=== PATIENT | female | born 1995 | race Caucasian/White ===

== ENCOUNTER 2018-05-25 15:28 | Emergency (ER) | payer OTHER ==
--- NOTE | 2018-05-25 16:01 | EDPHY ---
H & P Time Seen by Provider: 05/25/18 15:49 HPI/ROS: CHIEF COMPLAINT: Right middle finger injury HISTORY OF PRESENT ILLNESS: 22-year-old female presents to the emergency department with injury to the right middle finger. The patient was at the [employer] yesterday afternoon and fell back injuring her right middle finger. She did not hit her head or lose consciousness. She denies neck or back pain, chest pain, difficulty breathing, abdominal pain. She denies any other injuries other than the isolated pain she has in her right middle finger. The patient states that this morning when she woke up she was unable to take her ring off because her finger was so swollen and black and blue. She is right -hand dominant. ROS: Denies numbness or tingling in her fingers, pain in her right wrist or elbow. Past Medical/Surgical History: Negative Social History: [employer] student Smoking Status: Former smoker Physical Exam: On examination, the patient had swelling and ecchymosis noted diffusely to the right 3rd finger. Skin is intact. No puncture wound or abrasions. Normal sensation to light touch with normal 2 point discrimination. Limited range of motion especially at the PIP and D IP joint secondary to swelling. She does have a ring on and unable to remove this even with applying a lubricant. This will need to be cut off. The other fingers do not appear injured. She has full range of motion of her other fingers. Full range of motion of the right wrist. Strong radial pulse at the right wrist. Constitutional: Initial Vital Signs Temperature (C) 36.6 C 05/25/18 15:32 Heart Rate 75 05/25/18 15:32 Respiratory Rate 16 05/25/18 15:32 Blood Pressure 126/94 H 05/25/18 15:32 O2 Sat (%) 97 05/25/18 15:32 O2 Delivery Mode Room Air Allergies/Adverse Reactions: No Known Allergies Allergy (Unverified 05/25/18 15:31) Home Medications: Medication Instructions Recorded NK [No Known Home Meds] 05/25/18 MDM/Departure - MDM Imaging Results: Imaging Impressions Finger X-Ray 05/25/18 15:35 Impression: Middle phalangeal fracture.. Imaging: I viewed and interpreted images myself Procedures: The patient was placed in splint and fingers were maddi-taped and examined post application in good placement with normal [employer]. ED Course/Re-evaluation: The patient's ring will be cut off in the emergency department. X-rays of the right middle finger are pending. X-rays of the right middle finger revealed mid phalanx fracture without displacement. She was placed in [place] splint, fingers were maddi-taped, and she was given orthopedic referral. The patient states that she broke her wrist 1 year ago and had all for follow- up appointments at [facility]. - Depart Disposition: Home, Routine, Self-Care Clinical Impression: Fracture of phalanx of right middle finger Qualifiers: Encounter type: initial encounter Fracture type: closed Phalanx: middle Fracture alignment: nondisplaced Qualified Code(s): S62.652A - Nondisplaced fracture of middle phalanx of right middle finger, initial encounter for closed fracture Condition: Good Instructions: Finger Fracture (ED) Additional Instructions: Keep splint on keep it dry. Ibuprofen 600mg every 8 hours for pain as directed. Follow up with orthopedic hand surgery to recheck this week. Ice and elevate to help reduce swelling. Referrals: Rex Tavares MD [Medical Doctor] - 2-3 days without fail (Hand specialist on -call) [facility],. [Clinic] - As per Instructions
[2018-05-25 16:55] VITALS: BP 100/53
== END 2018-05-25 16:54 | disposition home or self-care (01) ==
DX: S62.602A Fracture of unspecified phalanx of right middle finger, initial encounter for closed fracture (principal); W19.XXXA Unspecified fall, initial encounter